=== PATIENT | male | born 1945 | race Caucasian/White ===

== ENCOUNTER 2016-10-27 17:55 | Emergency (ER) | payer MEDICARE, OTHER ==
[2016-10-27 18:59] LABS: HEMOGLOBIN 14.5 gm/dl (14.0-17.5); RED BLOOD COUNT 4.79 M/UL (4.20-5.50); WHITE BLOOD COUNT 9.4 K/UL (4.5-11.0)
[2016-10-27 19:17] LABS: BUN/CREATININE RATIO 15 (0-10)
== END 2016-10-28 01:20 | disposition short-term general hospital (02) ==
LOC: ER1 17:55
PROVIDERS: Family Medicine
DX: N13.30 Unspecified hydronephrosis (principal); N39.0 Urinary tract infection, site not specified; E11.9 Type 2 diabetes mellitus without complications
CPT/HCPCS: 36415; 80053; 81001; 82150; 83690; 85025; 87077; 87086; 87186; 96374; 96375; 99285; J0696; J2270; J2405; J7050